=== PATIENT | female | born 1970 | race Caucasian/White ===

== ENCOUNTER 2018-02-18 11:42 | Emergency (ER) | payer MEDICAID ==
[2018-02-18] MEDS: DEXAMETHASONE 10 MG/ML 1 ML INJ PO (14:25)
[2018-02-18] MEDS: ALBUTEROL 0.083% (NEB) 2.5 MG/3 ML AMP HHN (14:37)
[2018-02-18] MEDS: IPRATROPIUM (NEB) 0.5 MG/2.5 ML AMP HHN (14:37)
== END 2018-02-18 15:44 | disposition home or self-care (01) ==
LOC: FTE 11:42
DX: J45.901 Unspecified asthma with (acute) exacerbation (principal)
CPT/HCPCS: 71045; 93005; 99284-25

== ENCOUNTER 2018-06-13 14:23 | Emergency (ER) | payer MEDICAID ==
[2018-06-13] MEDS: TRIMETHOPRIM/SULFAMETHOX (DS) TAB PO (15:16)
[2018-06-13] MEDS: ALBUTEROL 0.083% (NEB) 2.5 MG/3 ML AMP HHN (15:29)
[2018-06-13] MEDS: DEXAMETHASONE 10 MG/ML 1 ML INJ IM (15:51)
== END 2018-06-13 16:17 | disposition home or self-care (01) ==
LOC: FTE 14:23
DX: J45.901 Unspecified asthma with (acute) exacerbation (principal)
CPT/HCPCS: 94664; 96372; 99284-25

== ENCOUNTER 2018-06-17 10:02 | Emergency (ER) | payer MEDICAID | END 2018-06-17 10:45 | disposition home or self-care (01) | LOC: FTE 10:02 | DX: L02.416 Cutaneous abscess of left lower limb (principal); J45.909 Unspecified asthma, uncomplicated; L03.116 Cellulitis of left lower limb | CPT/HCPCS: 99281 ==

== ENCOUNTER 2018-07-10 18:21 | Emergency (ER) | payer MEDICAID | END 2018-07-10 19:15 | disposition home or self-care (01) | LOC: FTE 18:21 | DX: J06.9 Acute upper respiratory infection, unspecified (principal); E11.9 Type 2 diabetes mellitus without complications; J45.909 Unspecified asthma, uncomplicated | CPT/HCPCS: 99282; Z7502 ==

== ENCOUNTER 2018-08-28 09:56 | Emergency (ER) | payer MEDICAID ==
[2018-08-28] MEDS: IPRATROPIUM (NEB) 0.5 MG/2.5 ML AMP NEB (10:38)
[2018-08-28] MEDS: ALBUTEROL 0.083% (NEB) 2.5 MG/3 ML AMP NEB (10:38)
[2018-08-28] MEDS: DEXAMETHASONE 10 MG/ML 1 ML INJ IV (10:46)
[2018-08-28] MEDS: SOD CHLORIDE 0.9% 1,000 ML IV (10:46)
[2018-08-28] MEDS: CEFTRIAXONE 1 GM/50 ML (PMX) 50 ML IVPB (10:46)
[2018-08-28] MEDS: ACETAMINOPHEN 325 MG TAB PO (11:38)
== END 2018-08-28 11:56 | disposition home or self-care (01) ==
LOC: FTE 09:56
DX: J45.901 Unspecified asthma with (acute) exacerbation (principal); L03.116 Cellulitis of left lower limb
CPT/HCPCS: 94664; 96365; 96375; 99284-25

== ENCOUNTER 2018-10-31 10:12 | Emergency (ER) | payer MEDICAID ==
[2018-10-31] MEDS: DEXAMETHASONE 10 MG/ML 1 ML INJ IM (11:15)
[2018-10-31] MEDS: IPRATROPIUM (NEB) 0.5 MG/2.5 ML AMP NEB (11:24)
[2018-10-31] MEDS: ALBUTEROL 0.083% (NEB) 2.5 MG/3 ML AMP NEB (11:25)
[2018-10-31] MEDS: IPRATROPIUM (NEB) 0.5 MG/2.5 ML AMP HHN (12:17)
[2018-10-31] MEDS: ALBUTEROL 0.083% (NEB) 2.5 MG/3 ML AMP HHN (12:17)
== END 2018-10-31 12:50 | disposition home or self-care (01) ==
LOC: FTE 10:12
DX: J45.901 Unspecified asthma with (acute) exacerbation (principal); E11.9 Type 2 diabetes mellitus without complications; R05 Cough
CPT/HCPCS: 71046; 94640; 94664; 96372; 99285-25

== ENCOUNTER 2018-12-13 16:27 | Emergency (ER) | payer MEDICAID ==
[2018-12-13] MEDS: ALBUTEROL 0.5% (NEB) 2.5 MG/0.5 ML AMP INH (18:18)
[2018-12-13] MEDS: DEXAMETHASONE 10 MG/ML 1 ML INJ IM (19:25)
[2018-12-13] MEDS: ALBUTEROL 0.083% (NEB) 2.5 MG/3 ML AMP HHN (19:55)
[2018-12-13] MEDS: IPRATROPIUM (NEB) 0.5 MG/2.5 ML AMP HHN (19:55)
== END 2018-12-13 20:39 | disposition home or self-care (01) ==
LOC: FTE 16:27
DX: J45.41 Moderate persistent asthma with (acute) exacerbation (principal); E11.9 Type 2 diabetes mellitus without complications
CPT/HCPCS: 71045; 94644; 96372; 99284-25